=== PATIENT | male | born 2000 | race Caucasian/White ===

== ENCOUNTER 2019-09-01 20:39 | Emergency (ER) | payer BC ==
[~2019-09-01] VITALS: Ht 188 cm; Wt 140.6 kg
[~2019-09-01 20:39] MED LIST: AZIT250 PO; IBUP600 PO
[2019-09-01] MEDS ORDERED: Omeprazole20 M1 PO (21:41)
== END 2019-09-01 21:51 | disposition home or self-care (01) ==
LOC: ER 20:39
DX: K21.0 Gastro-esophageal reflux disease with esophagitis (principal)
CPT/HCPCS: 99282

== ENCOUNTER 2019-12-02 19:21 | Emergency (ER) | payer BC ==
[~2019-12-02] VITALS: Ht 190.5 cm; Wt 154.2 kg
[~2019-12-02 19:21] MED LIST changes: +Omeprazole20 M1 PO
[2019-12-02 20:22] LABS: Source, Urine Clean Catch
[2019-12-02 20:22] LABS: BASOPHILS ABSOLUTE AUTO 0.04 K/mm3 (0.00-0.23); BASOPHILS PERCENT AUTO 0 % (0-2); EOSINOPHILS ABSOLUTE AUTO 0.11 K/mm3 (0.00-0.68); EOSINOPHILS PERCENT AUTO 1 % (0-6); Hematocrit 45.9 % (37.0-53.0); Hemoglobin 14.3 g/dL (13.5-17.5); IMMATURE GRAN ABSOLUTE AUTO 0.03 K/mm3 (0.00-0.10); IMMATURE GRAN PERCENT AUTO 0 % (0-1); LYMPHOCYTES ABSOLUTE AUTO 1.59 K/mm3 (0.84-5.20); LYMPHOCYTES PERCENT AUTO 14 % (21-46); MONOCYTES ABSOLUTE AUTO 0.54 K/mm3 (0.16-1.47); MONOCYTES PERCENT AUTO 5 % (4-13); Mean Corpuscular HGB 25.2 pg (26.0-34.0); Mean Corpuscular HGB Conc 31.2 g/dL (31.5-36.5); Mean Corpuscular Volume 81 fL (80-100); Mean Platelet Volume 9.9 fL (9.1-12.4); NEUTROPHILS ABSOLUTE AUTO 8.78 K/mm3 (1.96-9.15); NEUTROPHILS PERCENT AUTO 79 % (41-73); Platelet Count 324 K/mm3 (150-400); RDW Coefficient Variation 14.2 % (11.7-14.2); RDW Standard Deviation 41.5 fL (35.1-46.3); Red Blood Cell Count 5.68 M/mm3 (4.30-5.90); White Blood Cell Count 11.09 K/mm3 (4.00-11.30)
[2019-12-02 20:24] LABS: Blood, Urine 4+ (Neg); Glucose Qualitative, Urine Neg (Neg); Ketones, Urine 1+ (Neg); Leukocyte Esterase, Urine 1+ (Neg); Nitrite, Urine Pos (Neg); Protein, Urine 1+ (Neg); Specific Gravity, Urine 1.025 (1.003-1.022); Urobilinogen, Urine 3+ (Normal)
[2019-12-02 20:35] LABS: Bilirubin, Urine 3+ (Neg); Color, Urine Amber (P-Yellow)
[2019-12-02 20:36] LABS: Alanine Aminotransfer (ALT/SGP 573 U/L (12-78); Albumin, Blood 3.9 g/dL (3.4-5.0); Albumin/Globulin Ratio 0.8 (0.8-1.8); Alk Phos 352 U/L (50-136); Anion Gap 6 mmol/L (6-16); Aspartate Aminotrans (AST/SGOT 318 U/L (12-37); Bilirubin, Total 3.1 mg/dL (0.1-1.0); Blood Urea Nitrogen 13 mg/dL (8-24); Bun/Creatinine Ratio 12.3 (12.0-20.0); CO2, Blood 27 mmol/L (21-32); Calcium, Blood 9.1 mg/dL (8.5-10.1); Chloride, Blood 106 mmol/L (98-108); Creatinine, Blood 1.06 mg/dL (0.60-1.20); Globulin, Blood 4.8 g/dL (2.2-4.0); Glomerular Filtration Rate >60 (60-); Glucose, Blood 89 mg/dL (70-99); Potassium, Blood 3.5 mmol/L (3.5-5.5); Sodium, Blood 139 mmol/L (136-145); Total Protein, Blood 8.7 g/dL (6.4-8.2)
[2019-12-02 20:36] LABS: Appearance, Urine Hazy (Clear)
[2019-12-02 20:40] LABS: Bacteria Few /hpf; Mucus Mod (0-Heavy); Squamous Epithelial Cells Rare /hpf (Few)
== END 2019-12-03 01:38 | disposition short-term general hospital (02) ==
LOC: ER 19:21
PROVIDERS: Physician Assistant
DX: K80.50 Calculus of bile duct without cholangitis or cholecystitis without obstruction (principal); J06.9 Acute upper respiratory infection, unspecified; L50.9 Urticaria, unspecified
CPT/HCPCS: 36415; 76705; 80053; 81001; 83690; 85025; 86308; 87086; 96361; 96365; 96375; 96376; 99285-25; J1170; J2405; J2543; J3010; J7030